=== PATIENT | male | born 1965 | race African-American/Black ===

== ENCOUNTER 2017-07-17 19:47 | Emergency (ER) | payer OTHER ==
[~2017-07-17] VITALS: Ht 180.3 cm; Wt 113.4 kg
[2017-07-17 21:07] LABS: HEMOGLOBIN 15.4 gm/dL (14.0-18.0); MCHC 34.4 g/dL (28.0-37.0); MCV 93.1 fL (80.0-100.0); RBC 4.83 mil/uL (4.50-6.00); RDW 12.7 % (10.5-14.5); WBC 4.5 thou/uL (4.0-11.0)
[2017-07-17 21:17] LABS: URINE BILIRUBIN NEGATIVE (Negative); URINE BLOOD 3+ (Negative); URINE COLOR YELLOW; URINE GLUCOSE-RANDOM* NEGATIVE (Negative); URINE KETONES NEGATIVE (Negative); URINE NITRITE NEGATIVE (Negative); URINE PROTEIN (DIPSTICK) NEGATIVE (Negative); URINE SPECIFIC GRAVITY 1.025 (1.003-1.035)
[2017-07-17 21:20] LABS: BACTERIA None Seen /HPF (None Seen); CASTS None Seen /LPF (None Seen); CRYSTALS None Seen /LPF (None Seen); SQUAMOUS None Seen /LPF (0-3); URINE RBC >20 Many /HPF (0-2); URINE WBC 0-5 Rare /HPF (0-5)
[2017-07-17 21:54] LABS: PROTIME 10.6 Seconds (9.3-11.4)
[2017-07-17 22:36] LABS: CALCIUM 8.7 mg/dL (8.5-10.1); POTASSIUM 3.5 mmol/L (3.5-5.1)
[2017-07-17] MEDS ORDERED: NAPROSYN500 MG PO (22:46)
[2017-07-17] MEDS ORDERED: PHENERGAN 25 MG25 M1 PO (22:46)
[2017-07-17] MEDS ORDERED: FLOMAX0.4 MG PO (22:46)
[2017-07-17 22:51] VITALS: BP 129/87
[2017-07-18] MEDS ORDERED: NORCO 5-325 TA1 EACH PO (07:55)
== END 2017-07-17 22:52 | disposition home or self-care (01) ==
LOC: ER 19:47
PROVIDERS: Physician Assistant
DX: R31.9 Hematuria, unspecified (principal); N20.0 Calculus of kidney

== ENCOUNTER 2017-07-18 06:44 | Emergency (ER) | payer OTHER ==
[~2017-07-18] VITALS: Ht 180.3 cm; Wt 113.4 kg
[~2017-07-18 06:44] MED LIST: FLOMAX0.4 MG PO; NAPROSYN500 MG PO; PHENERGAN 25 MG25 M1 PO
[2017-07-18 07:36] LABS: URINE BILIRUBIN NEGATIVE (Negative); URINE BLOOD 3+ (Negative); URINE COLOR YELLOW; URINE GLUCOSE-RANDOM* NEGATIVE (Negative); URINE KETONES NEGATIVE (Negative); URINE NITRITE NEGATIVE (Negative); URINE PROTEIN (DIPSTICK) NEGATIVE (Negative); URINE SPECIFIC GRAVITY >= 1.030 (1.003-1.035); URINE UROBILINOGEN 0.2 E.U./dl (0.2-1.0)
[2017-07-18 07:50] LABS: CASTS None Seen /LPF (None Seen); SQUAMOUS 0-3 Few /LPF (0-3)
[2017-07-18 07:51] LABS: BACTERIA 1-9 Few /HPF (None Seen); CRYSTALS None Seen /LPF (None Seen); URINE RBC 0-2 Rare /HPF (0-2); URINE WBC 0-5 Rare /HPF (0-5)
[2017-07-18] MEDS ORDERED: NORCO 5-325 TA1 EACH PO (07:55)
[2017-07-18 08:49] VITALS: BP 162/85
== END 2017-07-18 08:50 | disposition home or self-care (01) ==
LOC: ER 06:44
PROVIDERS: Emergency Medicine
DX: N20.0 Calculus of kidney (principal); R11.2 Nausea with vomiting, unspecified